=== PATIENT | female | born 1990 | race American Indian/Alaskan Native ===

== ENCOUNTER 2024-10-04 12:22 | Emergency (ER) | payer OTHER, SELFPAY ==
--- NOTE | ~2024-10-04 | CT_ITS ---
Non-contrast Head CT History: Head injury Technique: Axial non-contrast imaging of the brain was performed. Dose reduction technique was used on this scan by utilizing automated exposure control and iterative reconstruction technique. The dose -length product (DLP) was 605.33 mGy-cm. Findings: There is no evidence of intracranial hemorrhage, mass lesion, or acute infarct. Brain par enchyma appears normal. The ventricles and subarachnoid spaces are normal in size. The calvarium ap pears normal. The visualized paranasal sinuses and mastoid air cells are clear. Impression: No significant abnormality seen. Reviewed, dictated and finalized at location . Impression: No significant abnormality seen.
--- OUTSIDE RECORDS SUMMARY | 2024-10-04 12:24 | XMS_ITS | Clinical Summary ---
Author Organization [facility] Address [address] [place] [address] Phone Care Team Providers Care Pv Design And Installation Technician Name Role Phone Rosalind Galvan APRN, DONNA Primary Care Provider [phone] Social History Tobacco Use Types Packs/Day Years Used Date Smoking Tobacco: Never Assessed Comments Unknown Sex and Gender Information Value Date Recorded Sex Assigned at Not on file Legal Sex Female 9:34 PM CDT Gender Identity Not on file Sexual Orientation Not on file Plan of Treatment Health Maintenance Due Date Last Done Comments Hepatitis C Virus (HCV) Screening 1992 TdaP Immunization 1992 Hepatitis B Immunization (1 of 3 - 19+ 3-dose series) 07/28/2011 Pap Smear 2013 Cervical Cancer Screening (CCS) 2022 HPV/Cotest 2022 Influenza Immunization (#1) 2024 SARS-COV-2 Immunization ( - 2023- season) 2024 Respiratory Syncytial Virus (RSV) Immunization (Adult) (1 - 1-dose 75+ series) 07/28/2067 Meningococcal Immunization (ACWY) Aged Out No longer eligible based on patient's age to complete this topic Pneumococcal Immunization Combined Aged Out No longer eligible based on patient's age to complete this topic Rotavirus Immunization Aged Out No lo nger eligible based on patient's age to complete this topic Insurance MEDICAID [employer] Care Teams Pv Design And Installation Technician Relationship Specialty Start Date End Date Rosalind Galvan APRN, DONNA [address] [place] [address] PCP - General Obstetrics & Gynecology 08/26/16
[2024-10-04 12:25] VITALS: PULSE 66; RESP 16; TEMP 36.3; O2SAT 100
--- OUTSIDE RECORDS SUMMARY | 2024-10-04 13:05 | XMS_ITS | Clinical Summary ---
Author Organization [facility] Address [address] [place] [address] Phone Care Team Providers Care Medical Insurance Clerk Name Role Phone Rosalind Galvan APRN, DONNA Primary Care Provider [phone] Social History Tobacco Use Types Packs/Day Years [...] Insurance [employer] Care Teams Medical Insurance Clerk Relationship Specialty Start Date End Date Rosalind Galvan APRN, DONNA [address] [place] [address] PCP - General Obstetrics & Gynecology 08/26/16
--- NOTE | 2024-10-04 13:06 | ED.GENADULT ---
HPI - General Adult General Chief complaint: Head Injury Stated complaint: head injury Time Seen by Provider: 10/04/24 12:32 History of Present Illness HPI narrative: 34-year-old female presenting to the emergency department for evaluation after having a ground level fall and head injury. Patient was walking down some wet steps at her house and slipped injuring her left lateral thigh and did strike her head resulting in a hematoma her forehead. Denies any other pain or injury. Patient denies any loss of consciousness. Patient states she did have some lightheaded dizziness after the initial injury but does feel improved now. Patient did present to the emergency department by private transport. Patient does not take any blood thinners. Related Data Allergies Allergy/AdvReac Type Severity Reaction Status Date / Time No Known Allergies Allergy Unverified 10/04/24 12:23 Review of Systems Review of Systems: All systems reviewed & are unremarkable except as noted in HPI and below Exam Narrative: APPEARANCE: Well appearing, no pain, no distress, well-nourished. HEAD: normocephalic, hematoma to forehead. EYES: PERRLA/EOMI, conjunctivae clear. NOSE: Normal no drainage EARS:TMS clear with good light reflex. THROAT: Pharynx clear, no exudate. NECK: Supple. No adenopathy, no masses. RESPIRATORY: Airway patent, respirations nonlabored. Clear to auscultation bilaterally, no rales, rhonchi, wheezing. CARDIOVASCULAR: Regular rate and rhythm without murmurs rubs or gallops. ABDOMINAL: Soft, nontender, nondistended, normal bowel sounds MUSCULOSKELETAL: No tenderness to left hip her left or left femur NEURO: Alert. Cranial nerves II through XII intact. Grossly intact SKIN: Abrasion to left lateral thigh with no palpable hematoma on Course Vital Signs Vital signs: Vital Signs Temperature 97.4 F L 10/04/24 12:25 Pulse Rate 66 10/04/24 12:25 Respiratory Rate 16 10/04/24 12:25 Pulse Oximetry 100 10/04/24 12:25 Oxygen Delivery Room Air 10/04/24 12:25 Temperature 97.4 F L 10/04/24 12:25 Pulse Rate 66 10/04/24 12:25 Respiratory Rate 16 10/04/24 12:25 Pulse Oximetry 100 10/04/24 12:25 Oxygen Delivery Room Air 10/04/24 12:25 Medical Decision Making [facility] Narrative Medical decision making narrative: 34-year-old female present to the emergency department for evaluation for a head injury and left lateral thigh pain. Patient has a potential hematoma/contusion to her left thigh with no suspected bony injury. Patient has a normal neuro exam. Patient's head CT was negative for acute intracranial abnormality. Patient had no other pain or injury. Patient declined any medications emergency department but will take Tylenol and ibuprofen at home for pain control. Patient will be provided additional Flexeril for muscle spasm. All questions concerns were addressed. Differential Diagnosis Differential Diagnosis: Hematoma, skull fracture, subdural hematoma, subarachnoid hemorrhage, hip hematoma, hip fracture, knee fracture Vital Signs Vital Signs: Vital Signs Temperature 97.4 F L 10/04/24 12:25 Pulse Rate 66 10/04/24 12:25 Respiratory Rate 16 10/04/24 12:25 Pulse Oximetry 100 10/04/24 12:25 Oxygen Delivery Room Air 10/04/24 12:25 Temperature 97.4 F L 10/04/24 12:25 Pulse Rate 66 10/04/24 12:25 Respiratory Rate 16 10/04/24 12:25 Pulse Oximetry 100 10/04/24 12:25 Oxygen Delivery Room Air 10/04/24 12:25 Imaging Data Radiologist's impression: Impressions Head CT 10/04/24 13:01 Impression: No significant abnormality seen. Discharge Plan Discharge Clinical Impression: Closed head injury, Hematoma Patient Disposition: Home Condition: Stable Instructions: Antibiotic Form, Head Injury (ED) Additional Instructions: Tylenol and ibuprofen for pain control. Flexeril for muscle spasm. Have close follow-up with your primary care physician. If you have any worsening symptoms then please call or return to the emergency department. Patient Language: Bermudian Prescriptions: New cyclobenzaprine 10 mg tablet 10 mg PO BID PRN (Reason: muscle spasm) Qty: 14 0RF Follow-up/Referrals: PHYSICIAN,SCRUM PRODUCT OWNER [Primary Care Provider] -
== END 2024-10-04 13:19 | disposition home or self-care (01) ==
PROVIDERS: Emergency Provider Emergency Medicine
DX: S00.83XA Contusion of other part of head, initial encounter (principal); S70.312A Abrasion, left thigh, initial encounter; W10.9XXA Fall (on) (from) unspecified stairs and steps, initial encounter
CPT/HCPCS: 70450; 99284

== ENCOUNTER 2024-12-21 13:26 | Emergency (ER) | payer OTHER, SELFPAY ==
--- NOTE | ~2024-12-21 | CT_ITS ---
EXAMINATION: CT abdomen pelvis w con DATE: 12/21/2024 15:47 INDICATION: Lower abdominal pain. Difficulty urinating. TECHNIQUE: Computed tomography (CT) of the abdomen and pelvis was performed with 100 mL Omnipaque-350 intravenous contrast. Automated exposure control and iterative reconstruction technique were employed. The dose-length product was 949.59 mGy-cm. COMPARISON: None FINDINGS: The visualized bilateral mid to lower lungs are clear. Heart size is normal. No pericardial or pleural effusion. Liver, gallbladder, spleen, pancreas, bilateral adrenal glands and kidneys are normal. Bowels including the appendix are normal. Bladder is normal. T-shaped IUD in expected position within the anteverted uterus. 4.2 cm and 2.0 cm left adnexal cysts. The right ovary is unremarkable. There is a small amount of free fluid in the deep pelvis which could be physiologic. No abscess or free intraperitoneal gas. Mild lumbosacral spondylosis with minimal spondylosis and more cephalad lumbar and lower thoracic spine. IMPRESSION: 1. A couple left adnexal cystic, the larger measuring 4.2 cm with small amount of likely physiologic free fluid in the deep pelvis. 2. T-shaped IUD in expected position within the anteverted uterus. Reviewed, dictated and finalized at location A.
--- NOTE | ~2024-12-21 | US_ITS ---
EXAMINATION: US pelvic complete INDICATION: Left lower quadrant pain Comparison:No prior studies for comparison. TECHNIQUE: Multiple transabdominal sonographic images of the pelvis performed. FINDINGS: The uterus measures 7.2 x 3.6 x 6.3 cm. There is an IUD in the endometrium. The endometrial complex is not well delineated for measurement. The right ovary measures 3.9 x 3.9 x 3.1 cm and the left ovary measures 4.2 x 3.6 x 3.8 cm. There is a minimally complicated cyst containing low level echoes in the left ovary measuring up to 4.7 cm. Doppler signal in both ovaries. There is trace free fluid in the pelvis. There are no abnormal masses seen on either side. IMPRESSION: 1. Minimally complicated left ovarian cyst measuring 4.7 cm, most likely physiologic ovarian cyst or hemorrhagic cyst. Recommend follow-up ultrasound in 6-12 weeks to confirm resolution. If cyst persists, enlarges or develops more complex features, further evaluation with MRI or gynecology referral indicated.. Reviewed, dictated and finalized at location O. IMPRESSION: 1. Minimally complicated left ovarian cyst measuring 4.7 cm, most likely physio logic ovarian cyst or hemorrhagic cyst. Recommend follow-up ultrasound in 6-12 weeks to confirm resolution. If cyst persists, enlarges or develops more comple x features, further evaluation with MRI or gynecology referral indicated..
[2024-12-21 13:48] VITALS: BP 127/80; PULSE 78; RESP 18; TEMP 36.6; O2SAT 100
[2024-12-21 14:00] LABS: BEDSIDEPREGUCG Negative (Negative)
[2024-12-21 14:06] LABS: Add Urine Microscopic? YES; Appearance Urine Cloudy (Clear); Glucose Urine UA Negative (Negative); Leukocyte Esterase Ur Negative LEU/UL (Negative); Nitrate Urine Negative (Negative); Non Pathogenic Casts 0-2; Specific Grav Ur 1.022 (1.001-1.035)
--- OUTSIDE RECORDS SUMMARY | 2024-12-21 14:35 | XMS_ITS | Clinical Summary ---
Author Organization [facility] Address [address] [place] [address] Phone Care Team Providers Care Director Of Resource Development Name Role Phone Rosalind Galvan APRN, CNLonnie Primary Care Provider [phone] Social History Tobacco Use Types Packs/Day Years [...] 19+ 3-dose series) 07/28/2011 Pap Smear 2013 Human Papillomavirus (HPV) Immunization (1 - 3-dose SCDM series) 07/28/2019 Cervical Cancer Screening (CCS) 2022 HPV/Cotest 2022 SARS-COV-2 Immunization ( season) 2024 Influenza Immunization (#1) 2025 Respiratory Syncytial Virus (RSV) Immunization (Adult) (1 [...] Insurance [employer] Care Teams Director Of Resource Development Relationship Specialty Start Date End Date Rosalind Galvan APRN, CNM [address] [place] [address] PCP - General Obstetrics & Gynecology 08/26/16
[2024-12-21 15:14] VITALS: BP 112/75; PULSE 61; RESP 18; O2SAT 98
[2024-12-21 15:16] LABS: Hematocrit 37.5 % (37.0-47.0); Hemoglobin 12.7 g/dL (12.0-15.0); Immature Granulocyte Percent A 0.5 % (0-0.5); Lymphocytes Absolute Auto 1.96 K/mm3 (0.9-3.2); Mean Corpuscular HGB Conc 33.9 g/dl (32-36); Mean Corpuscular Hemoglobin 30.6 pg (26-34); Mean Corpuscular Volume 90.4 fl (80-100); Nucleated Red Blood Cells Absolute Auto 0.000 K/mm3 (0.0-0.012); Nucleated Red Blood Cells Perc 0.0 % (0.0-0.2); Platelet Count Result 326 k/mm3 (150-375); Red Blood Count 4.15 M/mm3 (4.2-5.4); White Blood Count 8.5 K/mm3 (4.5-10.0)
[2024-12-21 15:28] LABS: Alanine Aminotransferase 27 U/L (6-35); Albumin Level 4.3 g/dL (3.5-5.1); Alkaline Phosphatase 67 U/L (38-126); Anion Gap 7 mmol/L (4-12); Aspartate Amino Transferase 29 U/L (14-36); Bilirubin,Total 0.5 mg/dL (0.2-1.3); Blood Urea Nitrogen 14 mg/dL (7-17); Calcium 9.3 mg/dL (8.4-10.2); Carbon Dioxide 24 mmol/L (22-30); Chloride 105 mmol/L (98-107); Estimated CRCL calculation 119 ml/min; Estimated Glomerular Filt Rate > 60; Glucose 89 mg/dL (65-110); Potassium 4.1 mmol/L (3.4-5.0); Sodium 136 mmol/L (137-145); Total Protein 7.6 g/dL (6.3-8.2)
--- NOTE | 2024-12-21 16:44 | ED.GENADULT ---
HPI - General Adult General Chief complaint: Urogenital-Female Stated complaint: lower abdominal pain Time Seen by Provider: 12/21/24 14:18 Source: patient Mode of arrival: ambulatory Limitations: no limitations History of Present Illness HPI narrative: Patient is a 34 y/o female who presents to the ED with c/o lower abdominal pain. Patient reports she developed pain throughout her taiwo lower abdomen this afternoon after finishing at her dentist's appointment. Reports pain was initially bilaterally but did seem to localize more to LLQ. Pain is improved currently, more of a dull ache currently. She does report having slight difficulty urinating/decreased urination over the past couple of days. Denies dysuria hematuria. Denies abnormal vaginal bleeding. Denies nausea, vomiting, diarrhea, constipation, fevers. Related Data Allergies Allergy/AdvReac Type Severity Reaction Status Date / Time No Known Allergies Allergy Verified 12/21/24 13:52 Review of Systems Review of Systems: All systems reviewed & are unremarkable except as noted in HPI. All systems reviewed & are unremarkable except as noted in HPI and below Exam Narrative: GENERAL: Well appearing, obese with BMI of 34.1, non-toxic, in no acute distress. HEAD: Normocephalic, atraumatic. RESPIRATORY: Airway patent, respirations nonlabored. Clear to auscultation bilaterally, no rales, rhonchi, wheezing. CARDIOVASCULAR: Regular rate and rhythm without murmurs, rubs, or gallops. ABDOMINAL: Soft, mild diffuse tenderness in LLQ, no rebound, nondistended. Normoactive BS. MUSCULOSKELETAL: Moves all extremities. No gross deformities. SKIN: Warm, dry, normal color. NEURO: A&O X3. Speech clear. PSYCHIATRIC: Appropriate mood and affect. Normal interaction. Course Vital Signs Vital signs: Vital Signs Temperature 97.8 F 12/21/24 13:48 Pulse Rate 78 12/21/24 13:48 Respiratory Rate 18 12/21/24 13:48 Blood Pressure 127/80 12/21/24 13:48 Pulse Oximetry 100 12/21/24 13:48 Oxygen Delivery Room Air 12/21/24 13:48 Temperature 97.8 F 12/21/24 13:48 Pulse Rate 68 12/21/24 18:00 Respiratory Rate 16 12/21/24 18:00 Blood Pressure 115/88 12/21/24 18:00 Pulse Oximetry 97 12/21/24 18:00 Oxygen Delivery Room Air 12/21/24 13:48 Medical Decision Making MDM Narrative Medical decision making narrative: Patient presented to ED with lower abdominal pain, worst in LLQ, onset today. Improved currently. VSS upon arrival. NAD. Laboratory studies are unremarkable. No significant abnormalities. UA with trace RBC, no signs of infection. negative. CT scan of abdomen/pelvis was obtained showing IUD in place, showing a few left-sided ovarian cysts. Pelvic US obtained and showing slightly complex fairly large L ovarian cyst, likely physiologic vs hemorrhagic. Good Doppler blood flow to both ovaries. No evidence of torsion. Discussed lab and imaging findings with patient. She has remained stable throughout ED stay. Has only required Tylenol for pain control with improvement. Feel she is safe for discharge home with outpatient follow-up with OBGYN. Discussed further pain control, discussed strict return precautions. Patient is in agreement with plan. Feels comfortable going. Discharged in stable condition. Medical Records Medical records reviewed: Yes I reviewed the external patient's medical records. Vital Signs Vital Signs: Vital Signs Temperature 97.8 F 12/21/24 13:48 Pulse Rate 78 12/21/24 13:48 Respiratory Rate 18 12/21/24 13:48 Blood Pressure 127/80 12/21/24 13:48 Pulse Oximetry 100 12/21/24 13:48 Oxygen Delivery Room Air 12/21/24 13:48 Temperature 97.8 F 12/21/24 13:48 Pulse Rate 68 12/21/24 18:00 Respiratory Rate 16 12/21/24 18:00 Blood Pressure 115/88 12/21/24 18:00 Pulse Oximetry 97 12/21/24 18:00 Oxygen Delivery Room Air 12/21/24 13:48 Lab Data Lab results reviewed: Yes I reviewed the patient's lab results. 12/21/24 15:10 12/21/24 15:10 Labs: Lab Results 12/21/24 12/21/24 12/21/24 Range/Units 13:55 13:56 15:10 WBC 8.5 (4.5-10.0) K/mm3 RBC 4.15 L (4.2-5.4) M/mm3 Hgb 12.7 (12.0-15.0) g/dL Hct 37.5 (37.0-47.0) % MCV 90.4 (80-100) fl MCH 30.6 (26-34) pg MCHC 33.9 (32-36) g/dl RDW 12.2 (11.5-14.5) % Plt Count 326 (150-375) k/mm3 MPV 8.6 (7.4-10.4) fl Immature Gran % (Auto) 0.5 (0-0.5) % Neut % (Auto) 66.3 (45.5-73.1) % Lymph % (Auto) 23.1 (18.3-44.2) % Lenoir % (Auto) 8.1 (2.6-8.5) % Eos % (Auto) 1.3 (0-4.4) % Baso % (Auto) 0.7 (0.2-1.2) % Lymph # (Auto) 1.96 (0.9-3.2) K/mm3 Lenoir # (Auto) 0.7 H (0.1-0.6) K/mm3 Eos # (Auto) 0.1 (0-0.3) K/mm3 Baso # (Auto) 0.1 (0.0-0.1) K/mm3 Abs Immat Gran (auto) 0.04 H (0.00-0.031) K/mm3 Absolute Neuts (auto) 5.6 (1.3-6.7) K/mm3 Absolute Nucleated RBC 0.000 (0.0-0.012) K/mm3 Nucleated RBC % 0.0 (0.0-0.2) % Sodium 136 L (137-145) mmol/L Potassium 4.1 (3.4-5.0) mmol/L Chloride 105 (98-107) mmol/L Carbon Dioxide 24 (22-30) mmol/L Anion Gap 7 (4-12) mmol/L BUN 14 (7-17) mg/dL Creatinine 0.63 L (0.7-1.0) mg/dL Estim Creat Clear Calc 119 ml/min Estimated GFR > 60 (59 - ) Glucose 89 (65-110) mg/dL Calcium 9.3 (8.4-10.2) mg/dL Total Bilirubin 0.5 (0.2-1.3) mg/dL AST 29 (14-36) U/L ALT 27 (6-35) U/L Alkaline Phosphatase 67 (38-126) U/L Total Protein 7.6 (6.3-8.2) g/dL Albumin 4.3 (3.5-5.1) g/dL Urine Color Yellow (Yellow) Urine Appearance Cloudy H (Clear) Urine pH 7.0 (5.0-9.0) Ur Specific Shelton 1.022 (1.001-1.035) Urine Protein Negative (Negative) mg/dL Urine Glucose (UA) Negative (Negative) mg/dL Urine Ketones Negative (Negative) mg/dL Ur Blood (Man) Negative (Negative) Urine Nitrate Negative (Negative) Urine Bilirubin Negative (Negative) Urine Urobilinogen 1.0 (<2.0) mg/dL Leukocyte Esterase Rfl Negative (Negative) JOSE ALEJANDRO/UL Urine RBC 3-5 H (0-2) /hpf Urine WBC 0-5 (0-3) /hpf Ur Squamous Epith Cells None seen (Few) /hpf Urine Bacteria None seen /hpf Urine Casts 0-2 POC Urine HCG, Qual Negative (Negative) Imaging Data Attestation: I personally reviewed and interpreted this imaging study as follows: Radiologist's impression: ITS Impressions Abdomen/Pelvis CT 12/21/24 16:04 IMPRESSION: 1. A couple left adnexal cystic, the larger measuring 4.2 cm with small amount of likely physiologic free fluid in the deep pelvis. 2. T-shaped IUD in expected position within the anteverted uterus. Pelvis Ultrasound 12/21/24 17:45 IMPRESSION: 1. Minimally complicated left ovarian cyst measuring 4.7 cm, most likely physiologic ovarian cyst or hemorrhagic cyst. Recommend follow-up ultrasound in 6-12 weeks to confirm resolution. If cyst persists, enlarges or develops more complex features, further evaluation with MRI or gynecology referral indicated.. Discharge Plan Discharge Clinical Impression: Left ovarian cyst, Left lower quadrant abdominal pain Patient Disposition: Home Condition: Stable Instructions: Antibiotic Form, Ovarian Cyst (ED), Abdominal Pain (ED) Additional Instructions: Recommend Tylenol/ibuprofen, heating pad as needed for pain. Follow-up with OBGYN for further evaluation. Call office to make appointment. Return to the ED if you experience worsening or severe pain, unable to keep down food or drink, persistent fevers, abnormal vaginal bleeding, or any other symptoms of concern. Patient Language: Romanian Prescriptions: No Action cyclobenzaprine 10 mg tablet 10 mg PO BID PRN (Reason: muscle spasm) Qty: 14 0RF Follow-up/Referrals: PHYSICIAN,LIQUOR BLENDER [Primary Care Provider, Internal Medicine] Albert Fair MD [Physician, COUNTY RECORDS MANAGEMENT OFFICER] Referral Note: OBGYN Time of Disposition: 18:03
[2024-12-21] MEDS: ACETAMINOPHEN 500 MG TABLET 1000 MG PO (17:10)
[2024-12-21 18:00] VITALS: BP 115/88; PULSE 68; RESP 16; O2SAT 97
== END 2024-12-21 18:42 | disposition home or self-care (01) ==
PROVIDERS: Emergency Medicine; Emergency Provider Physician Assistant
DX: N83.202 Unspecified ovarian cyst, left side (principal)
CPT/HCPCS: 36415; 74177; 76856; 80053; 81001; 81025; 85025; 99284; A9270; Q9967